=== PATIENT | male | born 1990 | race Caucasian/White ===

== ENCOUNTER 2023-11-21 17:09 | Emergency (ER) | payer OTHER, SELFPAY ==
--- NOTE | ~2023-11-21 | XR_ITS ---
EXAMINATION: XR HAND, RIGHT CLINICAL INFORMATION: Trauma. Pain. COMPARISON: None available. TECHNIQUE: Three views of the right hand. FINDINGS: The bones and soft tissues are normal. No fracture. Alignment is anatomic. Joint spaces are maintained. No erosions or soft tissue calcifications. XR/XR hand RT 2V IMPRESSION: Normal right hand.
--- NOTE | 2023-11-21 17:14 | ED.CHESTPAIN ---
HPI - Chest Pain General Chief Complaint: Chest Pain Stated Complaint: L SIDED CHEST PAIN FROM [facility] Time Seen by Provider: 11/21/23 17:12 Source: patient Mode of arrival: EMS Limitations: no limitations History of Present Illness HPI narrative: Patient is a 33-year-old male who presents to the emergency department on a section 21 from [facility] for evaluation. Reportedly he has been in an aggressive and combative state all throughout today. Struck a wall this afternoon with his right hand which she has redness and swelling over the dorsum of the hand along the ulnar aspect with associated pain. He reports that after hitting the wall he developed pain to his left chest, he states it is aching in nature in diffuse throughout. EMS obtained an EKG without abnormal findings reportedly normal sinus rhythm, they administered aspirin 324 mg orally and 0.4 as nitro and patient reports no change to his pain despite either medications. He denies fevers, chills, shortness of breath, difficulty breathing, nausea, vomiting, abdominal pain, numbness or tingling of his extremities. He does report recently having a nonproductive cough. He states he has experienced chest pain in the past, but the pain has always resolved before he could be evaluated at a hospital. He states that his current chest pain has been constant since its onset but also unchanged since the onset Related Data Allergies Allergy/AdvReac Type Severity Reaction Status Date / Time Unable to Assess Allergy Verified 11/21/23 17:26 Review of Systems Review of Systems: Yes all other systems are reviewed and are negative PMFSH Past Medical History Attestation statement: The following information was validated with the patient. Source: old records reviewed Social History Social History Advance Directives: No Advance Directives Information Provided: No Physical Exam Vital Signs: Vital Signs: Last Vital Signs Temp 98.3 F 11/21/23 19:51 Pulse 67 11/21/23 19:51 Resp 13 11/21/23 19:51 BP 126/76 11/21/23 19:51 Pulse Ox 99 11/21/23 19:51 O2 Del Method Room Air 11/21/23 19:51 BMI result Body Mass Index 30.8 Appearance: Alert.?Oriented to person, place and time. No acute distress.?Normal affect. Eyes: Pupils equal, round and reactive to light.? ENT: Pharynx normal.?? Neck: Normal inspection.? Neck supple.?? CVS: Heart sounds normal. Normal heart rate and rhythm.? Pulses normal.?? Respiratory: No respiratory distress.? Lung sounds clear to auscultation bilaterally?? Abdomen: Soft and non-tender. Normoactive bowel sounds. ?? Skin: Skin warm and dry.? Normal skin color.? ? Extremities: No lower extremity edema.? Erythema swelling and tenderness over the dorsum of the right hand over the 3rd-5th MCP with decreased AROM to digits Neuro: Moves all extremities spontaneously. Sensation intact bilaterally. CN II-XII intact. No focal neuro deficits. Ambulates with normal steady gait. Course Reevaluation(s) Reevaluation #1: Patient is refusing chest x-ray, lung sounds are clear bilaterally no tachypnea or hypoxia, although he has been experiencing a cough recently patient was advised can not completely exclude consolidation/infiltrate/pneumonia he continues to decline chest x-ray. CBC is without leukocytosis, he has a mild normocytic anemia that does not meet transfusion criteria, no thrombus a ptosis or thrombocytopenia. No electrolyte derangement. No CHIDI. LFTs within normal range. High sensitive troponin below detectable levels. Lipase within normal range. Viral panel is negative. EKG reveals normal sinus rhythm with ventricular rate of 66, QTC 429, no ST elevation, ST depression, no acute ischemic changes symptoms unlikely secondary to ACS, HEART score 0. Suspect musculoskeletal etiology versus stress reaction Time: 18:39 Reevaluation #2: XR of the right hand is without acute fracture/dislocation. Pain and swelling secondary to contusion of the hand. Time: 20:36 Medications Administered Discontinued Medications Generic Name Dose Route Start Last Admin Trade Name Ac PRN Reason Stop Dose Admin Acetaminophen 975 mg 11/21/23 18:41 11/21/23 19:09 Acetaminophen 325 Mg Tablet PO 11/21/23 18:42 Not Given ONCE ONE Acetaminophen 975 mg 11/21/23 20:12 11/21/23 20:17 Acetaminophen 325 Mg Tablet PO 11/21/23 20:13 975 mg ONCE ONE Administration Ibuprofen 600 mg 11/21/23 18:41 11/21/23 19:09 Ibuprofen 600 Mg Tablet PO 11/21/23 18:42 Not Given ONCE ONE Ibuprofen 600 mg 11/21/23 20:12 11/21/23 20:17 Ibuprofen 600 Mg Tablet PO 11/21/23 20:13 600 mg ONCE ONE Administration Medical Decision Making Medical Decision Making [facility] Narrative: Patient is a 33-year-old male presenting to emergency department for evaluation of chest pain and right hand pain as per HPI physical exam portion of this note. He does have notable swelling deformity and tenderness upon palpation to the dorsum of the left hand, XR will be obtained to evaluate for fracture/dislocation. On exam he otherwise appears nontoxic, afebrile, he has not diaphoretic, vital signs are stable. Will obtain CBC to evaluate for leukocytosis/ anemia, CMP and lipase to evaluate for abnormal electrolytes /abnormal renal function/ abnormal hepatic/biliary function, EKG and troponin to evaluate for ischemia/ACS. Chest x-ray to evaluate for consolidation/ infiltrate/ mass/ pulmonary congestion and viral panel. Upon review of records from [facility] he received alprazolam 1 mg at 15:06 and olanzapine 10 mg at 14:43. Differential Diagnosis Differential Diagnoses: The differential diagnosis associated with the presentation includes (Anxiety, stress reaction, ACS, upper respiratory infection, musculoskeletal pain) Admission/Observation Consideration of admission/observation: Escalation of care including admission/observation considered Lab Data [facility] Lab Attestation statement: I reviewed the patient's lab results. (See course narrative) 11/21/23 17:52 11/21/23 17:52 Labs: Lab Results 11/21/23 Range/Units 17:52 WBC 7.0 (4.8-10.8) X10*3/uL RBC 4.57 L (4.60-5.80) X10*6/uL Hgb 13.5 L (14.0-18.0) g/dl Hct 38.8 L (42.0-52.0) % MCV 84.9 (80.0-98.0) fL MCH 29.5 (27.0-33.0) pg MCHC 34.8 (31.0-36.0) g/dl RDW 14.2 (11.0-16.0) % Plt Count 246 (160-400) X10*3/uL MPV 10.5 (9.4-12.4) fL Immature Gran % (Auto) 0.9 H (0.0-0.4) % Neut % (Auto) 63.4 (45-73) % Lymph % (Auto) 29.0 (20-40) % [place] % (Auto) 6.3 (2-11) % Eos % (Auto) 0.1 (0-4) % Baso % (Auto) 0.3 (0-2) % Lymph # (Auto) 2.0 (1.2-4.9) X10*3/uL [place] # (Auto) 0.4 (0.1-1.2) X10*3/uL Eos # (Auto) 0.0 (0.0-0.4) X10*3/uL Baso # (Auto) 0.0 (0.0-0.2) X10*3/uL Abs Immat Gran (auto) 0.06 H (0.00-0.03) X10*3/uL Absolute Neuts (auto) 4.4 (2.0-8.3) x10*3/uL Absolute Nucleated RBC 0.000 (0.0-0.012) X10*3/uL Nucleated RBC % (auto) 0.0 (0.0-0.2) /100WBC PT 11.7 (11.1-13.3) SEC INR 1.0 (0.9-1.1) Sodium 140 (135-145) mmol/L Potassium 4.0 (3.3-5.1) mmol/L Chloride 107 (96-108) mmol/L Carbon Dioxide 23 (22-29) mmol/L Anion Gap 14 (12-20) BUN 9 (9-16) mg/dL Creatinine 0.82 (0.5-1.4) mg/dL Estim Creat Clear Calc 133.4 Estimated GFR > 60 Random Glucose 84 (60-115) mg/dL Calcium 9.2 (8.4-10.2) mg/dL Magnesium 2.0 (1.6-2.6) mg/dL Total Bilirubin 0.3 (0.0-1.0) mg/dL AST 17 (5-37) U/L ALT 19 (0-40) U/L Alkaline Phosphatase 72 (39-117) U/L Troponin I High Sens < 2.7 (<3.5-35.0) ng/L Total Protein 6.5 (6.5-8.0) g/dL Albumin 4.1 (3.5-5.0) g/dL Lipase 12 (8-78) U/L Influenza Type A (PCR) NEGATIVE (Negative) Influenza Type B (PCR) NEGATIVE (Negative) RSV RNA Qual (PCR) NEGATIVE (Negative) SARS-CoV-2 RNA (RT-PCR) NEGATIVE (Negative) Independent Interpretation I performed an independent interpretation of an: EKG (See course narrative) and Plain X-Ray (Right hand without acute fracture) Radiology Impression Discussion of test interpretation with radiology: I have reviewed the radiologist's reading. Radiologist Impression: XR/XR hand RT 2V IMPRESSION: Normal right hand. Independent Historian Clinical information obtained from an independent historian. History obtained from or confirmed by: EMS External Record Review External record reviewed: Outpatient record Discharge Plan Discharge Clinical Impression: Chest pain, Contusion of hand Patient Disposition: [facility]fer [facility] Transfer Details: Jonas Additional Instructions: Blood work and EKG today were very reassuring, no evidence of a heart attack. Viral tests were negative. He declined to have x-ray of the chest to rule out pneumonia, though I suspect this is less likely to be the cause. Chest pain is likely secondary to muscle strain versus stress reaction. The x-ray of your right hand does not show any evidence of a fracture dislocation. Pain is due to traumatic injury. Please be sure to rest the hand, apply ice for 10-15 minutes 3-4 times daily over the next few days, elevate the hand when possible. You can take ibuprofen 200 mg, 3 tablets (600mg) every 6-8 hours as needed for pain, in addition to Tylenol 500 mg, 2 tablets (1,000mg) every 4-6 hours as needed for pain, but not to exceed 3 doses daily (3,000mg).? Referrals: Physician,Unknown J [Primary Care Provider] - Print Language: Spanish
[2023-11-21 17:20] VITALS: BP 128/81; BP 136/90; PULSE 71; PULSE 82; RESP 18; TEMP 36.8; O2SAT 98; O2SAT 99; BMI 30.8
--- NOTE | 2023-11-21 17:22 | ECG_ITS ---
Test Reason : CHEST PAIN Blood Pressure : / mmHG Vent. Rate : 066 BPM Atrial Rate : 066 BPM P-R Int : 120 ms QRS Dur : 084 ms QT Int : 410 ms P-R-T Axes : 009 001 023 degrees QTc Int : 429 ms Normal sinus rhythm Normal ECG No previous ECGs available Referred By: Mary Willis Electronically Signed By:TALA GILMORE
[2023-11-21 17:58] LABS: MANUAL DIFF FLAG NO
[2023-11-21 18:10] LABS: Prothrombin Time 11.7 SEC (11.1-13.3)
[2023-11-21 18:12] LABS: Alanine Aminotransferase 19 U/L (0-40); Albumin Level 4.1 g/dL (3.5-5.0); Alkaline Phosphatase 72 U/L (39-117); Anion Gap 14 (12-20); Aspartate Amino Transferase 17 U/L (5-37); Bilirubin Total 0.3 mg/dL (0.0-1.0); Blood Urea Nitrogen 9 mg/dL (9-16); Calcium 9.2 mg/dL (8.4-10.2); Carbon Dioxide 23 mmol/L (22-29); Chloride 107 mmol/L (96-108); Creatinine Clr Calc Pharmacy 133.4; Estimated Glomerular Filt Rate > 60; Glucose Random 84 mg/dL (60-115); Lipase 12 U/L (8-78); Sodium 140 mmol/L (135-145); Total Protein 6.5 g/dL (6.5-8.0)
[2023-11-21 18:15] LABS: Basophils Percent Auto 0.3 % (0-2); Eosinophils Percent Auto 0.1 % (0-4); Hematocrit 38.8 % (42.0-52.0); Hemoglobin 13.5 g/dl (14.0-18.0); Imm Gran Abs Auto 0.06 X10*3/uL (0.00-0.03); Imm Gran Pct Auto 0.9 % (0.0-0.4); Mean Corpuscular HGB Conc 34.8 g/dl (31.0-36.0); Mean Corpuscular Hemoglobin 29.5 pg (27.0-33.0); Mean Corpuscular Volume 84.9 fL (80.0-98.0); Mean Platelet Volume 10.5 fL (9.4-12.4); Monocytes Absolute Auto 0.4 X10*3/uL (0.1-1.2); Monocytes Percent Auto 6.3 % (2-11); Neutrophils Absolute Auto 4.4 x10*3/uL (2.0-8.3); Neutrophils Percent Auto 63.4 % (45-73); Platelet Count 246 X10*3/uL (160-400); Red Blood Count 4.57 X10*6/uL (4.60-5.80); Red Cell Distribution Width 14.2 % (11.0-16.0)
[2023-11-21 18:20] LABS: Troponin-I High Sensitivity < 2.7 ng/L (<3.5-35.0)
[2023-11-21 18:35] LABS: Influenza A PCR NEGATIVE (Negative); Influenza B PCR NEGATIVE (Negative); Resp Syncy Virus RNA Qual PCR NEGATIVE (Negative); SARS COV2 PCR INHOUSE NEGATIVE (Negative)
[2023-11-21 18:53] VITALS: BP 123/77; PULSE 70; RESP 15; TEMP 36.3; O2SAT 98
--- NOTE | 2023-11-21 19:09 | PC.NURSE ---
patient refusing tylenol and ibuprofen, states it hurts his stomach.
--- NOTE | 2023-11-21 19:48 | PC.NURSE ---
call Shana Man @ [phone] when pt ready for discharge.
[2023-11-21 19:51] VITALS: BP 126/76; PULSE 67; RESP 13; TEMP 36.8; O2SAT 99
[2023-11-21] MEDS: Ibuprofen 600 MG TABLET PO (20:17)
[2023-11-21] MEDS: Acetaminophen 325 MG TABLET 975 MG PO (20:17)
--- NOTE | 2023-11-21 21:24 | PC.NURSE ---
Jonas notified of normal xray and that pt is ready for d/c.
--- NOTE | 2023-11-21 22:31 | PC.NURSE ---
pt is waiting for ambulance back, pain to right hand/. pt moving and making a fist with both his hands. redness to hands amanda noted. no s/s of distress. pt iv removed.
[2023-11-21 22:51] VITALS: BP 118/73; PULSE 71; O2SAT 99
[2023-11-21 22:59] VITALS: BP 118/73; PULSE 71; RESP 16; TEMP 36.8; O2SAT 99
== END 2023-11-21 23:36 ==
PROVIDERS: Nurse Practitioner Family; Emergency Provider Emergency Medicine
DX: R07.9 Chest pain, unspecified (principal); S60.221A Contusion of right hand, initial encounter; W22.09XA Striking against other stationary object, initial encounter; Y93.9 Activity, unspecified; Y92.9 Unspecified place or not applicable; Y99.9 Unspecified external cause status
CPT/HCPCS: 0241U; 36415; 73120; 80053; 83690; 83735; 84484; 85025; 85610; 93005; 99283; 99285

== ENCOUNTER → 2023-11-21 17:22 | Outpatient (BNV) | payer OTHER, SELFPAY | PROVIDERS: Emergency Provider Emergency Medicine; Visit Provider Internal Medicine | DX: R07.9 Chest pain, unspecified (principal) | CPT/HCPCS: 93010 ==

== ENCOUNTER 2025-05-16 09:11 | Emergency (ER) | payer OTHER, SELFPAY ==
[2025-05-16 09:23] VITALS: BP 117/68; PULSE 86; RESP 16; TEMP 36.8; O2SAT 95; BMI 37.2
--- OUTSIDE RECORDS SUMMARY | 2025-05-16 10:31 | XMS_ITS | Encounter Summary ---
Author Organization [facility] [address] [place] [address] Care Team Providers Care Knockout Machine Operator Name Role Phone Pcp, No Unavailable Unavailable Doug Escoto MD, Surinder Doe Primary Care Provider [phone] Kristian Schroeder MD Primary Care Provider [phone] Encounter Details Date Type Department Care Team (Late st Contact Info) Description 08/14/2024 Lab Requisition [facility] [address] [place] [id number] Kirill Sun MD [address] [place] [phone] Bipolar disorder, current episode mixed, severe, with psychotic features (HCC); Opioid dependence with unspecified opioid-induced disorder (HCC); Post-traumatic stress disorder, chronic Social History Tobacco Use Types Packs/Day Years Used Date Smoking Tobacco: Never Smokeless Tobacco: Never Alcohol Use Standard Drinks/Week Comments Never 0 (1 standard drink = 0.6 oz pur e alcohol) Sex and Gender Information Value Date Recorded Sex Assigned at Male 05/19/2024 11:33 AM EST Legal Sex Male 8:53 PM EDT Gender Identity Male 05/19/2024 11:33 AM EST Sexual Orientation Straight 05/19/2024 11 :33 AM EST documented as of this encounter Plan of Treatment Not on file documented as of this encounter Procedures Procedure Name Priority Date/Time Associated Diagnosis Comments LIPID PROFILE, REFLEX DIRECT LDL Routine 08/14/2024 6:35 AM EST CBC AND AUTO DIFFERENTIAL Routine 08/14/2024 6:35 AM EST TSH WITH REFLEX TO FREE T4 Routine 08/14/2024 6:35 AM EST LDL CHOLESTEROL DIRECT Routine 6:35 AM EST HEMOGLOBIN A1C Routine 08/14/2024 6:35 AM EST COMPREHENSIVE METABOLIC PANEL Routine 08/14/2024 6:35 AM EST Bipolar disorder, current episode mixed, severe, with psychotic features (HCC) Opioid dependence with unspecified opioid-induced disorder (HCC) Post-traumatic stress disorder, chronic documented in this encounter Results * (ABNORMAL) LDL Cholesterol Direct (08/14/2024 6:35 AM EST) LDL Direct 100(H) <100 mg/dL 08/14/2024 12:25 PM EST [facility] Blood Venipuncture / Unknown 08/14/2024 6:35 AM EST 08/14/2024 9:22 AM EST Narrative [facility] - 08/14/2024 12:25 PM EST ADULT LEVELS: Optimal for High Risk Group < 70 mg/dL Optimal < 100 mg/dL Near Optimal 100 - 129 mg/dL Borderline High 130 - 159 mg/dL High 160 - 189 mg/dL Very High > 190 ng/dL us Kirill Sun MD LAB BLOOD ORDERABLES Final Result [facility] [address] [place] [address] * (ABNORMAL) CBC and Auto Differential (08/14/2024 6:35 AM EST) WBC 5.5 4.8 - 11.2 10*3/ L 08/14/2024 9:57 AM EST [facility] RBC 4.76 4.00 - 5.90 10*6/ L 08/14/2024 9:57 AM EST [facility] HGB 13.6(L) 14.0 - 17.2 g/dL 08/14/2024 9:57 AM [facility] HCT 40.9 40.0 - 52.0 % 08/14/2024 9:57 AM [facility] MCV 86.0 82.0 - 98.0 fL 08/14/2024 9:57 AM [facility] MCH 28.6 27.0 - 35.0 pg 08/14/2024 9:57 AM [facility] MCHC 33.3 32.0 - 37.0 g/dL 08/14/2024 9:57 AM [facility] RDW 15.3(H) 12.0 - 15.0 % 08/14/2024 9:57 AM [facility] PLT 244 150 - 400 10*3/ L 08/14/2024 9:57 AM [facility] MPV 9.1 7.0 - 14.0 fL 08/14/2024 9:57 AM [facility] Neut % 56.3 45.0 - 85.0 % 08/14/2024 9:57 AM [facility] Lymph % 34.9 15.0 - 45.0 % 08/14/2024 9:57 AM [facility] [place] % 6.7 0.0 - 12.0 % 08/14/2024 9:57 AM [facility] Eos % 1.7 0.0 - 7.0 % 08/14/2024 9:57 AM [facility] Baso % 0.4 0.0 - 3.0 % 08/14/2024 9:57 AM [facility] NRBC% 0 0 /100 WBC /100 WBC 08/14/2024 9:57 AM [facility] Neut # 3.1 2.2 - 9.5 10*3/ L 08/14/2024 9:57 AM [facility] Lym # 1.9 0.7 - 5.0 10*3/ L 08/14/2024 9:57 AM [facility] [place] # 0.4 0.0 - 1.3 10*3/ L 08/14/2024 9:57 AM EST [facility] Eos # 0.1 0.0 - 0.4 10*3/ L 08/14/2024 9:57 AM EST [facility] Baso # 0.0 0.0 - 0.3 10*3/ L 08/14/2024 9:57 AM EST [facility] Blood Venipuncture / Unknown 08/14/2024 6:35 AM EST 08/14/2024 9:22 AM EST us Kirill Sun MD LAB BLOOD ORDERABLES Final Result Performing Organization Address [facility] Phone Number [facility] [address] [place] [phone] * TSH with reflex to Free T4 (08/14/2024 6:35 AM EST) TSH 2.424 0.340 - 4.820 uIU/mL 08/14/2024 11:14 AM EST [facility] Blood Venipuncture / Unknown 08/14/2024 6:35 AM EST 08/14/2024 9:22 AM EST us Kirill Sun MD LAB BLOOD ORDERABLES Final Result Performing Organization Address [facility] Phone Number [facility] [address] [place] [phone] * Hemoglobin A1c (08/14/2024 6:35 AM EST) Hemoglobin A1C 5.4 4.0 - 6.0 % 08/14/2024 12:09 PM EST [facility] Estimated Average Glucose eAG 108.3 85.0 - 126.0 mg/dL 08/14/2024 12:09 PM EST [facility] Blood 08/14/2024 6:35 AM EST 08/14/2024 9:22 AM EST us Kirill Sun MD LAB BLOOD ORDERABLES Final Result Performing Organization Address City/[facility] Phone Number [facility] [address] [place] [address] * (ABNORMAL) Lipid profile, reflex direct LDL (08/14/2024 6:35 AM EST) Cholesterol 197 <200 mg/dL 08/14/2024 11:15 AM EST [facility] Triglycerides 528(H) <150 mg/dL 08/14/2024 11:15 AM EST [facility] HDL 33.4(L) >=60.0 mg/dL 08/14/2024 11:15 AM EST [facility] LDL Calculated 08/14/2024 11:15 AM EST [facility] Comment:Calculated LDL inval id, triglycerides >400 mg/dl Cardiac Risk Factor 5.9(H) 0.0 - 5.0 08/14/2024 11:15 AM EST [facility] Blood Venipuncture / Unknown 08/14/2024 6:35 AM EST 08/14/2024 9:22 AM EST Narrative [facility] - 08/14/2024 11:15 AM EST Cardiac Risk Factor: Males Females 2x Average Risk 9.6 7.1 3x Average Risk 23.4 11.0 Kirill Sun MD LAB BLOOD ORDERABLES Final Result [facility] [address] [place] [phone] * Comprehensive metabolic panel (08/14/2024 6:35 AM EST) Sodium 138 136 - 145 mEq/L 08/14/2024 11:14 AM EST [facility] Potassium 4.6 3.5 - 5.1 mEq/L 08/14/2024 11:14 AM EST [facility] Chloride 107 98 - 109 mEq/L 08/14/2024 11:14 AM EST [facility] CO2 23 20 - 31 mEq/L 08/14/2024 11:14 AM EST [facility] Anion Gap 8 4 - 15 mEq/L 08/14/2024 11:14 AM EST [facility] Glucose 89 70 - 100 mg/dL 08/14/2024 11:14 AM [facility] Creatinine 0.74 0.60 - 1.10 mg/dL 08/14/2024 11:14 AM [facility] eGFR (Male) >60 60 - 115 mL/min 08/14/2024 11:14 AM [facility] BUN 13 9 - 23 mg/dL 08/14/2024 11:14 AM [facility] Calcium 9.5 8.3 - 10.6 mg/dL 08/14/2024 11:14 AM [facility] Total Protein 6.9 5.7 - 8.2 g/dL 08/14/2024 11:14 AM [facility] Albumin 4.3 3.2 - 4.8 g/dL 08/14/2024 11:14 AM [facility] A/G Ratio 1.7 1.0 - 2.3 08/14/2024 11:14 AM [facility] Total Bilirubin 0.2 0.2 - 1.0 mg/dL 08/14/2024 11:14 AM [facility] AST 14 13 - 40 U/L 08/14/2024 11:14 AM [facility] Alkaline Phosphatase 112 46 - 116 IU/L 08/14/2024 11:14 AM [facility] ALT 26 7 - 40 U/L 08/14/2024 11:14 AM [facility] Blood Venipuncture / Unknown 08/14/2024 6:35 AM EST 08/14/2024 9:22 AM EST Narrative [facility] - 08/14/2024 11:14 AM EST The calcium reference range has been changed as of 05/19/2024. Kirill Sun MD LAB BLOOD ORDERABLES Final Result [facility] [address] [place] [address] documented in this encounter Visit Diagnoses Diagnosis Bipolar disorder, current episode mixed, severe, with psychotic features (HCC) Opioid dependence with unspecified opioid-induced disorder (HCC) Post-traumatic stress disorder, chronic documented in this encounter Care Teams Knockout Machine Operator Relationship Specialty Start Date End Date Surinder Camacho Jr., MD [address] [place] [phone] PCP - General Internal Medicine 10/05/23 03/17/25 Kristian Schroeder MD [address] [place] [phone] PCP - General Family Medicine 03/18/25 [place] [id number] 08/22/20 documented as of this encounter
--- OUTSIDE RECORDS SUMMARY | 2025-05-16 10:31 | XMS_ITS | Data Portability ---
Author Organization [facility], [facility] Address [address] [place] [address] Assessment Encounter Date Assessment Date Assessment LastModified by Organization Details LastModified Time 01/16/2020 01/16/2020 B/P 145/85, otherwise examination unremarkable today. Discussed htn preventive lifestyle changes and encouraged to f/u with is pcp. See the attached documents. [email or web address] Not available 01/16/2020 11:18:04 Plan of Treatment Reminders Order Date Submit Date Provider Last Modified By Organization Details Last Modified Time Details Appointments None record ed. Lab None record ed. Referral None record ed. Procedures None record ed. Surgeries None record ed. Imaging None record ed. Medication Orders None record ed. Patient TargetsNo targets recorded. Patient InstructionsNo instructions recorded. Reason for Referral None Reported. Problems No Known Problems Medical Equipment None Reported. Allergies No known drug allergies Medications Name Sig Start Date Stop Date Status Note LastModified by Organization Details LastModified Time hydroxyzine HCl 25 mg tablet Take 1 tablet 4 times a day by oral route. active Not Available Not Available No t Available Suboxone 8 mg-[address] 1 film every day by sublingual route. active Not Available Not Available No t Available Vitals Date Recorded Body height Body mass index (BMI) Body weight Heart rate Oxygen saturation Respiratory rate Body temperature Systolic And Diastolic Provider Name and Address Organization Details Last Updated DateTime 0 172.72 cm 25.8 kg/m2 33229.7 g 56 /min 100 % 16 /min 98.1 [degF] 145/83 mm[Hg] Makayla Salinas [facility] 0 11:05:59 Social History Question Answer Notes LastModified by Organizat ion Details LastModified Time Tobacco Smoking Status Current Every Day Smoker Makayla malin [facility] 01/16/2020 10:59:02 What Is Your Level Of Caffeine Consumption? None Information not available 01/16/2020 What Type Of Diet Are You Following? REGULAR Information not available 01/16/2020 Which Illicit Or Recreational Drugs Have You Used? None Information not available 01/16/2020 Live Alone Or With Others? With Others Information not available 01/16/2020 Sunscreen Used Routinely Yes Information not available 01/16/2020 Marital Status Single Informatio n not available 01/16/2020 How Many Children Do You Have? 0 Information not available 01/16/2020 Seat Belts Used Routinely Yes Information not available 01/16/2020 Smoke Alarm In Home Yes Information not available 01/16/2020 How Much Tobacco Do You Smoke? 1 PPD Information not available 01/16/2020 Sex: Unknown Functional Status Question Answer Note LastModified by Organization D etails LastModified Time What is your level of alcohol consumption? None Information not available 01/16/2020 What is your exercise level? Moderate Information not available 01/16/2020 Mental Status None recorded. Family History Relationship Description Onset Age of this Age Resolved Age Notes LastModified by Organization Details LastModified Time Father No current problems or disability [email or web address] Not available 01/15 11:07:40 Mother No current problems or disability [email or web address] Not available 01/15 11:07:40 Medical History No medical history recorded. Past Encounters Encounter ID Performer Location Encounter Start Date Encounter Closed Date Diagnosis/Indication Diagnosis SNOMED-CT Code Diagnosis ICD10 Code Diagnosis IMO Codes Diagnosis Note [id number] Gladys Dickey/Leonardo ockton Office [facility] [place] [address] 01/16/2020 10:25:04 01/16/2020 11:56:23 Health Concerns Section Related Observation LastModified by Organization Detai ls LastModified Time None Recorded Concern Status LastModified by Organization Details LastModified Time None Recorded Advance Directives Directive None Recorded Payers Insurance Date Sequence Insurance Name Policy Number Policy He Covered Member ID He Member ID Guarantor Name 01/16/2020 [facility] Evan Boyce 0 [id number] Evan Austen Notes Date Note Type Note Provider Name and Address Organization Details Recorded Time 01/16/2020 text/html Patient is here today for preemployment for the [employer]. Denies any pain/discomfort/con cerns today. Gladys Salgado [address] [place] [address], [place], [address], [facility] 01/16/2020 11:18:09
--- OUTSIDE RECORDS SUMMARY | 2025-05-16 10:31 | XMS_ITS | Clinical Summary ---
Author Organization [facility] Address [address] [place] [address] Phone Care Team Providers Care Alligator Hunter Name Role Phone Surinder Camacho Jr. Primary Care Provider [phone] Allergies No known active allergies Social History Tobacco Use Types Packs/Day Years Used Date Smoking Tobacco: Never Assessed Sex and Gender Information Value Date Recorded Sex Assigned at Not on file Legal Sex Male 12:29 PM EDT Gender Identity Not on file Sexual Orientation Not on file Last Filed Vital Signs Vital Sign Reading Time Taken Comments Blood Pressure 133/83 09/18/2024 6:10 PM EDT Pulse 72 09/18/2024 6:10 PM EDT Temperature 36.5 C (97.7 F) 09/18/2024 6:10 PM EDT Respiratory Rate 20 09/18/2024 6:10 PM EDT Oxygen Saturation 97% 09/18/2024 6:10 PM EDT Inhaled Oxygen Concentration - - Weight 108.9 kg (240 lb) 09/18/2024 12:47 PM EDT Height 172.7 cm (5' 8 ) 09/18/2024 12:47 PM EDT Body Mass Index 36.49 09/18/2024 12:47 PM EDT Plan of Treatment Health Maintenance Due Date Last Done Comments [facility] Topic HIV Screening 1991 [facility] Topic Hepatitis C Screening 1991 [facility] Topic Tdap Vaccine (1 - Tdap) 2010 [facility] Topic HPV Vaccines (1 - 3-dose SCDM series) 2018 [facility] Topic Influenza (Flu) Seasonal (#1) 2025 [facility] Topic Lipid Profile 5 years 08/14/2029 08/14/2024, 08/14/2024, 07/17/2024 [facility] Topic Shingrix (1 of 2) 2041 [facility] AMB RSV (under 20 months) Aged Out No longer eligible b ased on patient's age to complete this topic [facility] Topic HIB Vaccines Aged Out No longer eligible based on patient's age to complete this topic Insurance [facility] Care Teams Alligator Hunter Relationship Specialty Start Date End Date Surinder Camacho Jr. [address] [place] [id number] PCP - General Internal Medicine 09/18/24
--- OUTSIDE RECORDS SUMMARY | 2025-05-16 10:31 | XMS_ITS | Encounter Summary ---
Author Organization [facility] Address [address] [place] [address] Care Team Providers Care Shoe Stamper Name Role Phone Pcp, No Unavailable Unavailable Doug Escoto MD, Surinder Doe Primary Care Provider [phone] Kristian Schroeder MD Primary Care Provider [phone] Encounter Details Date Type Department Care Team ([facility] Contact Info) Description 05/19/2024 Procedure Pass [facility] - [address] [address] Social History Tobacco Use Types Packs/Day Years [...] on file documented as of this encounter Visit Diagnoses Not on filedocumented in this encounter Care Teams Shoe Stamper Relationship Specialty Start Date End Date Surinder Camacho Jr., MD [address] [place] [address] PCP - General Internal Medicine 10/05/23 03/17/25 Kristian Schroeder MD [address] [place] [address] PCP - General Family Medicine 03/18/25 [place] [id number] 08/22/20 documented as of this encounter
--- OUTSIDE RECORDS SUMMARY | 2025-05-16 10:31 | XMS_ITS | Encounter Summary ---
Author Organization [facility] [address] [place] [address] Care Team Providers Care Quality Assurance Analyst Name Role Phone Pcp, No Unavailable Unavailable Doug Escoto MD, Surinder Doe Primary Care Provider [phone] Kristian Schroeder MD Primary Care Provider [phone] Encounter Details Date Type Department Care Team (Late st Contact Info) Description 09/28/2024 Lab Requisition [address] [id number] Ortiz Corado NP [address] [place] [phone] Bipolar disorder, current episode depressed, severe, without psychotic features (HCC) Social History Tobacco Use Types Packs/Day Years [...] Comments LIPID PROFILE, REFLEX DIRECT LDL Routine 09/28/2024 8:05 AM EDT Bipolar disorder, current episode depressed, severe, without psychotic features (HCC) TSH WITH REFLEX TO FREE T4 Routine 09/28/2024 8:05 AM EDT HEMOGLOBIN A1C Routine 09/28/2024 8:05 AM EDT documented in this encounter Results * TSH with reflex to Free T4 (09/28/2024 8:05 AM EDT) TSH 2.325 0.550 - 4.780 uIU/mL 09/28/2024 11:00 AM EDT [facility] Blood Venipuncture / Unknown 09/28/2024 8:05 AM EDT 09/28/2024 8:59 AM EDT [facility] - 09/28/2024 11:00 AM EDT NOTE: Effective 08/25/24, the reference range has changed as follows: Old reference ranges: 0 up to 2 Years: 0.870-6.150 uIU/mL 2 Years up to 12 Years: 0.670-4.160 uIU/mL 12 Years up to 18 Years: 0.480-4.170 uIU/mL 18 Years +: 0.340-4.820 uIU/mL New Reference ranges: 0 up to 2 Years: 0.870-6.150 uIU/mL 2 Years up to 13 Years: 0.670-4.160 uIU/mL 13 Years up to 21 Years: 0.480-4.170 uIU/mL 21 Years +: 0.550-4.780 uIU/mL [facility] LAB BLOOD ORDERABLES Final R esult [facility] [address] [place] [address] * Hemoglobin A1c (09/28/2024 8:05 AM EDT) Hemoglobin A1C 6.0 4.0 - 6.0 % 09/28/2024 10:39 AM EDT [facility] Estimated Average Glucose eAG 125.5 85.0 - 126.0 mg/dL 09/28/2024 10:39 AM EDT [facility] Blood 09/28/2024 8:05 AM EDT 09/28/2024 8:59 AM EDT Ortiz Ahoskie PRINTER MAINTAINER LAB BLOOD ORDERABLES Final R esult Performing Organization Address [facility] Co de Phone Number [facility] [address] [place] [address] * (ABNORMAL) Lipid profile, reflex direct LDL (09/28/2024 8:05 AM EDT) Cholesterol 133 <200 mg/dL 09/28/2024 11:00 AM EDT [facility] Triglycerides 210(H) <150 mg/dL 09/28/2024 11:00 AM EDT [facility] HDL 37.1(L) >=60.0 mg/dL 09/28/2024 11:00 AM EDT [facility] LDL Calculated 54 0 - 100 mg/dL 09/28/2024 11:00 AM EDT [facility] Cardiac Risk Factor 3.6 0.0 - 5.0 09/28/2024 11:00 AM EDT [facility] Blood Venipuncture / Unknown 09/28/2024 8:05 AM EDT 09/28/2024 8:59 AM EDT Narrative [facility] - 09/28/2024 11:00 AM EDT Cardiac Risk Factor: Males Females 2x Average Risk 9.6 7.1 3x Average Risk 23.4 11.0 [facility] PRINTER MAINTAINER LAB BLOOD ORDERABLES Final R esult Performing Organization Address [facility] Co de Phone Number [facility] [address] [place] [address] documented in this encounter Visit Diagnoses Diagnosis Bipolar disorder, current episode depressed, severe, without psychotic features (HCC) documented in this encounter Care Teams Quality Assurance Analyst Relationship Specialty Start Date End Date Surinder Camacho Jr., MD [address] [place] [phone] PCP - General Internal Medicine 10/05/23 03/17/25 Kristian Schroeder MD [address] [place] [phone] PCP - General Family Medicine 03/18/25 [place] [id number] 08/22/20 documented as of this encounter
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
--- OUTSIDE RECORDS SUMMARY | 2025-05-16 10:31 | XMS_ITS | Encounter Summary ---
Author Organization [facility] Address [address] [place] [address] Care Team Providers Care Cloth Drier Name Role Phone Pcp, No Unavailable Unavailable Doug Escoto MD, Surinder Doe Primary Care Provider [phone] Kristian Schroeder MD Primary Care Provider [phone] Encounter Details Date Type Department Care Team (Late st Contact Info) Description 07/30/2024 Pharmacy Visit [facility] [address] [place] [phone] Social History Tobacco Use Types Packs/Day Years [...] on filedocumented in this encounter Care Teams Cloth Drier Relationship Specialty Start Date End Date Surinder Camacho Jr., MD [address] [place] [address] PCP - General Internal Medicine 10/05/23 03/17/25 Kristian Schroeder MD [address] [place] [address] PCP - General Family Medicine 03/18/25 [place] [id number] 08/22/20 documented as of this encounter
--- OUTSIDE RECORDS SUMMARY | 2025-05-16 10:31 | XMS_ITS | Encounter Summary ---
Author Organization [facility] [address] [place] [address] Care Team Providers Care Junior Linux Systems Administrator Name Role Phone Pcp, No Unavailable Unavailable Doug Escoto MD, Surinder Doe Primary Care Provider [phone] Kristian Schroeder MD Primary Care Provider [phone] Encounter Details Date Type Department Care Team (Late st Contact Info) Description 10/10/2024 Lab Requisition [address] [phone] Carol Neumann, HOT STAMP OPERATOR [address] [place] [address] Bipolar disorder, current episode depressed, severe, without [...] Procedure Name Priority Date/Time Associated Diagnosis Comments URINE COMPLETE Routine 10/09/2024 2:00 PM EDT Bipolar disorder, current episode depressed, severe, without psychotic features (HCC) documented in this encounter Results * (ABNORMAL) Urine Complete (10/09/2024 2:00 PM EDT) Clarity, UA Clear Clear 10/10/2024 12:11 PM EDT [facility] Color Light-Yello w Colorless, Yellow, Light-Yello w, Dark-Yellow 10/10/2024 12:11 PM EDT [facility] Specific [place] 1.018 1.000 - 1.025 10/10/2024 12:11 PM EDT [facility] pH 6.0 5.0 - 8.0 10/10/2024 12:11 PM EDT [facility] Protein Negative Negative, 10 , 20 mg/dL 10/10/2024 12:11 PM EDT [facility] Glucose Normal Normal, 30 , 50 mg/dL 10/10/2024 12:11 PM EDT [facility] Ketones Negative Negative, Trace mg/dL 10/10/2024 12:11 PM EDT [facility] Blood Negative Negative, 0.03 mg/dL 10/10/2024 12:11 PM EDT [facility] Bilirubin UA Negative Negative mg/dL 10/10/2024 12:11 PM EDT [facility] Urobilinogen Normal Normal mg/dL 10/10/2024 12:11 PM EDT [facility] Nitrite Negative Negative 10/10/2024 12:11 PM EDT [facility] Leukocyte Esterase Negative Negative, 25 Yariel/uL 10/10/2024 12:11 PM EDT [facility] WBC 0-2 0 - 2 HPF 10/10/2024 12:11 PM EDT [facility] Squam Epithelial Few Few HPF 10/11/19 25 12:11 PM EDT [facility] Bacteria Few(A) None Seen HPF 10/10/2024 12:11 PM EDT [facility] Urine Urine specimen obtained by clean catch procedure / Unknown Collection / Unknown 10/09/2024 2:00 PM EDT 10/10/2024 11:31 AM EDT us Nji S Thien HOT STAMP OPERATOR URINE ORDERABLES Final Result [facility] [address] [place] [address] documented in this encounter Visit Diagnoses Diagnosis Bipolar disorder, current episode depressed, severe, without psychotic features (HCC) documented in this encounter Care Teams Junior Linux Systems Administrator Relationship Specialty Start Date End Date Surinder Camacho Jr., MD [address] [place] [address] PCP - General Internal Medicine 10/05/23 03/17/25 Kristian Schroeder MD [address] [place] [address] PCP - General Family Medicine 03/18/25 [place] [id number] 08/22/20 documented as of this encounter
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
--- OUTSIDE RECORDS SUMMARY | 2025-05-16 10:31 | XMS_ITS | Encounter Summary ---
Author Organization [address] [address] Care Team Providers Care Surveyor Rod Helper Name Role Phone Pcp, No Unavailable Unavailable Doug Escoto MD, Surinder Doe Primary Care Provider [phone] Kristian Schroeder MD Primary Care Provider [phone] Encounter Details Date Type Department Care Team (Latest Contact Info) Description 07/17/2024 Lab Requisition [address] [address] Latisha Fallon, [employer] [address] [place] [address] Bipolar disorder, current episode mixed, severe, without psychotic features (HCC); Other psychoactive substance abuse, uncomplicated (HCC) Social History Tobacco Use Types Packs/Day [...] Comments LIPID PROFILE, REFLEX DIRECT LDL Routine 07/17/2024 7:19 AM EST CBC AND AUTO DIFFERENTIAL Routine 07/17/2024 7:19 AM EST TSH WITH REFLEX TO FREE T4 Routine 07/17/2024 7:19 AM EST HEMOGLOBIN A1C Routine 07/17/2024 7:19 AM EST COMPREHENSIVE METABOLIC PANEL Routine 07/17/2024 7:19 AM EST Bipolar disorder, current episode mixed, severe, without psychotic features (HCC) Other psychoactive substance abuse, uncomplicated (HCC) documented in this encounter Results * (ABNORMAL) CBC and Auto Differential (07/17/2024 7:19 AM EST) WBC 4.8 4.8 - 11.2 10*3/ L 07/17/2024 12:33 PM [facility] RBC 4.72 4.00 - 5.90 10*6/ L 07/17/2024 12:33 PM [facility] HGB 13.4(L) 14.0 - 17.2 g/dL 07/17/2024 12:33 PM [facility] HCT 40.4 40.0 - 52.0 % 07/17/2024 12:33 PM [facility] MCV 85.5 82.0 - 98.0 fL 07/17/2024 12:33 PM [facility] MCH 28.3 27.0 - 35.0 pg 07/17/2024 12:33 PM [facility] MCHC 33.1 32.0 - 37.0 g/dL 07/17/2024 12:33 PM [facility] RDW 15.1(H) 12.0 - 15.0 % 07/17/2024 12:33 PM [facility] PLT 216 150 - 400 10*3/ L 07/17/2024 12:33 PM [facility] MPV 9.0 7.0 - 14.0 fL 07/17/2024 12:33 PM [facility] Neut % 53.9 45.0 - 85.0 % 07/17/2024 12:33 PM [facility] Lymph % 34.8 15.0 - 45.0 % 07/17/2024 12:33 PM EST [facility] [place] % 8.2 0.0 - 12.0 % 07/17/2024 12:33 PM [facility] Eos % 2.5 0.0 - 7.0 % 07/17/2024 12:33 PM EST [facility] Baso % 0.6 0.0 - 3.0 % 07/17/2024 12:33 PM [facility] NRBC% 0 0 /100 WBC /100 WBC 07/17/2024 12:33 PM [facility] Neut # 2.6 2.2 - 9.5 10*3/ L 07/17/2024 12:33 PM [facility] Lym # 1.7 0.7 - 5.0 10*3/ L 07/17/2024 12:33 PM [facility] [place] # 0.4 0.0 - 1.3 10*3/ L 07/17/2024 12:33 PM [facility] Eos # 0.1 0.0 - 0.4 10*3/ L 07/17/2024 12:33 PM [facility] Baso # 0.0 0.0 - 0.3 10*3/ L 07/17/2024 12:33 PM [facility] Blood Venipuncture / Unknown 07/17/2024 7:19 AM EST 07/17/2024 11:17 AM EST us Latisha Fallon NP LAB BLOOD ORDERABLES Final Resul t [facility] [address] [place] [address] * TSH with reflex to Free T4 (07/17/2024 7:19 AM EST) TSH 2.168 0.340 - 4.820 uIU/mL 07/17/2024 11:53 AM EST [facility] Blood Venipuncture / Unknown 07/17/2024 7:19 AM EST 07/17/2024 11:17 AM EST us Latisha Fallon NP LAB BLOOD ORDERABLES Final Resul t Performing Organization Address City/[facility] Co de Phone Number [facility] [address] [place] [phone] * Hemoglobin A1c (07/17/2024 7:19 AM EST) Hemoglobin A1C 5.5 4.0 - 6.0 % 07/17/2024 11:43 AM EST [facility] Estimated Average Glucose eAG 111.2 85.0 - 126.0 mg/dL 07/17/2024 11:43 AM EST [facility] Blood 07/17/2024 7:19 AM EST 07/17/2024 11:17 AM EST us Latihsa Fallon NP LAB BLOOD ORDERABLES Final Resul t Performing Organization Address [facility] de Phone Number [facility] [address] [place] [phone] * (ABNORMAL) Lipid profile, reflex direct LDL (07/17/2024 7:19 AM EST) Cholesterol 205(H) <200 mg/dL 07/17/2024 11:53 AM EST [facility] Triglycerides 378(H) <150 mg/dL 07/17/2024 11:53 AM EST [facility] HDL 37.7(L) >=60.0 mg/dL 07/17/2024 11:53 AM EST [facility] LDL Calculated 92 0 - 100 mg/dL 07/17/2024 11:53 AM EST [facility] Cardiac Risk Factor 5.4(H) 0.0 - 5.0 07/17/2024 11:53 AM EST [facility] Blood Venipuncture / Unknown 07/17/2024 7:19 AM EST 07/17/2024 11:17 AM EST Narrative [facility] - 07/17/2024 11:53 AM EST Cardiac Risk Factor: Males Females 2x Average Risk 9.6 7.1 3x Average Risk 23.4 11.0 us Latisha Fallon NP LAB BLOOD ORDERABLES Final Resul t [facility] [address] [place] [address] * (ABNORMAL) Comprehensive metabolic panel (07/17/2024 7:19 AM EST) Sodium 141 136 - 145 mEq/L 07/17/2024 11:53 AM [facility] Potassium 4.0 3.5 - 5.1 mEq/L 07/17/2024 11:53 AM [facility] Chloride 107 98 - 109 mEq/L 07/17/2024 11:53 AM [facility] CO2 28 20 - 31 mEq/L 07/17/2024 11:53 AM [facility] Anion Gap 6 4 - 15 mEq/L 07/17/2024 11:53 AM [facility] Glucose 79 70 - 100 mg/dL 07/17/2024 11:53 AM [facility] Creatinine 0.85 0.60 - 1.10 mg/dL 07/17/2024 11:53 AM [facility] eGFR (Male) >60 60 - 115 mL/min 07/17/2024 11:53 AM [facility] BUN 10 9 - 23 mg/dL 07/17/2024 11:53 AM [facility] Calcium 9.3 8.3 - 10.6 mg/dL 07/17/2024 11:53 AM [facility] Total Protein 6.7 5.7 - 8.2 g/dL 07/17/2024 11:53 AM [facility] Albumin 4.4 3.2 - 4.8 g/dL 07/17/2024 11:53 AM [facility] A/G Ratio 1.9 1.0 - 2.3 07/17/2024 11:53 AM [facility] Total Bilirubin 0.2 0.2 - 1.0 mg/dL 07/17/2024 11:53 AM [facility] AST 57(H) 13 - 40 U/L 07/17/2024 11:53 AM EST [facility] Alkaline Phosphatase 94 46 - 116 IU/L 07/17/2024 11:53 AM EST [facility] ALT 86(H) 7 - 40 U/L 07/17/2024 11:53 AM EST [facility] Blood Venipuncture / Unknown 07/17/2024 7:19 AM EST 07/17/2024 11:17 AM EST Narrative [facility] - 07/17/2024 11:53 AM EST The calcium reference range has been changed as of 05/19/2024. us Latisha Fallon NP LAB BLOOD ORDERABLES Final Resul t [facility] [address] [place] [address] documented in this encounter Visit Diagnoses Diagnosis Bipolar disorder, current episode mixed, severe, without psychotic features (HCC) Other psychoactive substance abuse, uncomplicated (HCC) documented in this encounter Care Teams Surveyor Rod Helper Relationship Specialty Start Date End Date Surinder Camacho Jr., MD [address] [place] [address] PCP - General Internal Medicine 10/05/23 03/17/25 Kristian Schroeder MD [address] [place] [address] PCP - General Family Medicine 03/18/25 [place] [id number] 08/22/20 documented as of this encounter
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
--- OUTSIDE RECORDS SUMMARY | 2025-05-16 10:31 | XMS_ITS | Encounter Summary ---
Author Organization [facility] Address [address] [place] [address] Care Team Providers Care Clinical Staff Anesthesiologist Name Role Phone Pcp, No Unavailable Unavailable Doug Escoto MD, Surinder Doe Primary Care Provider [phone] Kristian Schroeder MD Primary Care Provider Encounter Details Date Type Department Care Team (Late st Contact Info) Description 10/05/2023 Procedure Pass [facility] - [address] [address] Social History Tobacco Use Types Packs/Day Years Used Date Smoking Tobacco: Former Cigarettes Smokeless Tobacco: Never Alcohol Use Standard Drinks/Week [...] on filedocumented in this encounter Care Teams Clinical Staff Anesthesiologist Relationship Specialty Start Date End Date Surinder Camacho Jr., MD [address] [place] [address] PCP - General Internal Medicine 10/05/23 03/17/25 Kristian Schroeder MD [address] [place] [address] PCP - General Family Medicine 03/18/25 [place] [id number] 08/22/20 documented as of this encounter
--- OUTSIDE RECORDS SUMMARY | 2025-05-16 10:31 | XMS_ITS | Encounter Summary ---
Author Organization [facility] Address [address] [place] [address] Care Team Providers Care Sane Rn Name Role Phone Pcp, No Unavailable Unavailable Doug Escoto MD, Surinder Doe Primary Care Provider [phone] Kristian Schroeder MD Primary Care Provider [phone] Encounter Details Date Type Department Care Team (Late st Contact Info) Description 07/31/2024 Pharmacy Visit [facility] [address] [place] [phone] Social History Tobacco Use Types Packs/Day [...] on filedocumented in this encounter Care Teams Sane Rn Relationship Specialty Start Date End Date Surinder Camacho Jr., MD [address] [place] [address] PCP - General Internal Medicine 10/05/23 03/17/25 Kristian Schroeder MD [address] [place] [address] PCP - General Family Medicine 03/18/25 [place] [id number] 08/22/20 documented as of this encounter
--- OUTSIDE RECORDS SUMMARY | 2025-05-16 10:32 | XMS_ITS | Encounter Summary ---
Author Organization [facility] [address] [place] [address] Care Team Providers Care Gambling Monitor Name Role Phone Pcp, No Unavailable Unavailable Kristian Schroeder MD Primary Care Provider [phone] Encounter Details Date Type Department Care Team (Late st Contact Info) Description 03/27/2025 Procedure Pass [facility] [address] [place] [address] Social History Tobacco Use Types Packs/Day [...] on filedocumented in this encounter Care Teams Gambling Monitor Relationship Specialty Start Date End Date Kristian Schroeder MD [address] [place] [phone] PCP - General Family Medicine 03/18/25 [place] [id number] 08/22/20 documented as of this encounter
--- OUTSIDE RECORDS SUMMARY | 2025-05-16 10:32 | XMS_ITS | Encounter Summary ---
Author Organization [facility] Address [address] [place] [address] Care Team Providers Care Auto Body Estimator Name Role Phone Pcp, No Unavailable Unavailable Kristian Schroeder MD Primary Care Provider [phone] Encounter Details Date Type Department Care Team (Late st Contact Info) Description 03/25/2025 Lab Requisition [facility] [address] [place] [address] Trudi Spencer, ASSEMBLY PERSON [address] [place] [id number] Bipolar disorder, current episode depressed, severe, without psychotic features (HCC); Opioid abuse, uncomplicated (HCC); Post-traumatic stress disorder, chronic Social History [...] Procedure Name Priority Date/Time Associated Diagnosis Comments CBC AND AUTO DIFFERENTIAL Routine 03/25/2025 7:30 AM EDT LITHIUM LEVEL Routine 03/25/2025 7:30 AM EDT COMPREHENSIVE METABOLIC PANEL Routine 03/25/2025 7:30 AM EDT Bipolar disorder, current episode depressed, severe, without psychotic features (HCC) Opioid abuse, uncomplicated (HCC) Post-traumatic stress disorder, chronic documented in this encounter Results * [place] level (03/25/2025 7:30 AM EDT) Pathologist [facility] [place] 1.09 0.50 - 1.30 mmol/L 03/25/2025 9:22 AM EDT [facility] Blood Venipuncture / Unknown 03/25/2025 7:30 AM EDT 03/25/2025 8:34 AM EDT us Trudi Spencer ASSEMBLY PERSON LAB BLOOD ORDERABLES Final Re sult [facility] [address] [place] [id number] * (ABNORMAL) CBC and Auto Differential (03/25/2025 7:30 AM EDT) Pathologist [facility] WBC 10.7 4.8 - 11.2 10*3/ L 03/25/2025 8:52 AM EDT [facility] RBC 4.44 4.00 - 5.90 10*6/ L 03/25/2025 8:52 AM EDT [facility] HGB 13.0(L) 14.0 - 17.2 g/dL 03/25/2025 8:52 AM EDT [facility] HCT 39.2(L) 40.0 - 52.0 % 03/25/2025 8:52 AM EDT [facility] MCV 88.3 82.0 - 98.0 fL 03/25/2025 8:52 AM EDT [facility] MCH 29.3 27.0 - 35.0 pg 03/25/2025 8:52 AM EDT [facility] MCHC 33.2 32.0 - 37.0 g/dL 03/25/2025 8:52 AM EDT [facility] RDW 13.0 12.0 - 15.0 % 03/25/2025 8:52 AM EDT [facility] PLT 209 150 - 400 10*3/ L 03/25/2025 8:52 AM EDT [facility] MPV 11.4 7.0 - 14.0 fL 03/25/2025 8:52 AM EDT [facility] Neut % 80.1 45.0 - 85.0 % 03/25/2025 8:52 AM EDT [facility] Immature Granulocytes % 0.5 0 - 5.0 % 03/25/2025 8:52 AM EDT [facility] Lymph % 12.4(L) 15.0 - 45.0 % 03/25/2025 8:52 AM EDT [facility] Mcmullen % 5.0 0.0 - 12.0 % 03/25/2025 8:52 AM EDT [facility] Eos % 1.8 0.0 - 7.0 % 03/25/2025 8:52 AM EDT [facility] Baso % 0.2 0.0 - 3.0 % 03/25/2025 8:52 AM EDT [facility] NRBC% 0 0 /100 WBC /100 WBC 03/25/2025 8:52 AM EDT [facility] Neut # 8.6 2.2 - 9.5 10*3/ L 03/25/2025 8:52 AM EDT [facility] Immature Granulocytes Absolute 0.05 0.00 - 0.56 10*3/ L 03/25/2025 8:52 AM EDT [facility] Lym # 1.3 0.7 - 5.0 10*3/ L 03/25/2025 8:52 AM EDT [facility] Mcmullen # 0.5 0.0 - 1.3 10*3/ L 03/25/2025 8:52 AM EDT [facility] Eos # 0.2 0.0 - 0.4 10*3/ L 03/25/2025 8:52 AM EDT [facility] Baso # 0.0 0.0 - 0.3 10*3/ L 03/25/2025 8:52 AM EDT [facility] Blood Venipuncture / Unknown 03/25/2025 7:30 AM EDT 03/25/2025 8:34 AM EDT us Trudi Spencer ASSEMBLY PERSON LAB BLOOD ORDERABLES Final Re sult [facility] [address] [place] [address] * (ABNORMAL) Comprehensive metabolic panel (03/25/2025 7:30 AM EDT) Sodium 145 136 - 145 mEq/L 03/25/2025 9:23 AM EDT [facility] Potassium 5.0 3.5 - 5.1 mEq/L 03/25/2025 9:23 AM EDT [facility] Chloride 106 98 - 109 mEq/L 03/25/2025 9:23 AM EDT [facility] CO2 31 20 - 31 mEq/L 03/25/2025 9:23 AM EDT [facility] Anion Gap 8 4 - 15 mEq/L 03/25/2025 9:23 AM EDT [facility] Glucose 87 70 - 100 mg/dL 03/25/2025 9:23 AM EDT [facility] Creatinine 0.94 0.60 - 1.10 mg/dL 03/25/2025 9:23 AM EDT [facility] eGFR (Male) >60 60 - 115 mL/min 03/25/2025 9:23 AM EDT [facility] BUN 7(L) 9 - 23 mg/dL 03/25/2025 9:23 AM EDT [facility] Calcium 9.4 8.3 - 10.6 mg/dL 03/25/2025 9:23 AM EDT [facility] Total Protein 6.6 5.7 - 8.2 g/dL 03/25/2025 9:23 AM EDT [facility] Albumin 4.0 3.2 - 4.8 g/dL 03/25/2025 9:23 AM EDT [facility] A/G Ratio 1.5 1.0 - 2.3 03/25/2025 9:23 AM EDT [facility] Total Bilirubin 0.3 0.2 - 1.0 mg/dL 03/25/2025 9:23 AM EDT [facility] AST 36 13 - 40 U/L 03/25/2025 9:23 AM EDT [facility] Alkaline Phosphatase 81 46 - 116 IU/L 03/25/2025 9:23 AM EDT [facility] ALT 59(H) 7 - 40 U/L 03/25/2025 9:23 AM EDT [facility] Blood Venipuncture / Unknown 03/25/2025 7:30 AM EDT 03/25/2025 8:34 AM EDT Narrative [facility] - 03/25/2025 9:23 AM EDT Calculation based on the Chronic Kidney Disease Epidemiology Collaboration (CKD- EPI) equation refit without adjustment for race. us Trudi Spencer NP LAB BLOOD ORDERABLES Final Re sult [facility] [address] [place] [address] documented in this encounter Visit Diagnoses Diagnosis Bipolar disorder, current episode depressed, severe, without psychotic features (HCC) Opioid abuse, uncomplicated (HCC) Post-traumatic stress disorder, chronic documented in this encounter Care Teams Auto Body Estimator Relationship Specialty Start Date End Date Kristian Schroeder MD [address] [place] [address] PCP - General Family Medicine 03/18/25 [place] [id number] 08/22/20 documented as of this encounter
--- NOTE | 2025-05-16 10:34 | HE.PHANOTE ---
Re Methadone Pt receives 105mg from [facility] [place] Last dose was given 05/14/25 @0900
[2025-05-16] MEDS: methADONE HCl 20 MG/2 ML ORAL.CONC 105 MG PO (10:45)
--- NOTE | 2025-05-16 10:50 | ED_ITS ---
HPI - General Adult General Chief complaint: General Medical Stated complaint: missed methadone dose Time Seen by Provider: 05/16/25 10:26 Source: patient, RN notes reviewed and old records reviewed Mode of arrival: ambulatory History of Present Illness ED Provider: Janae Guzman PA-C HPI narrative: 34-year-old male with a past medical history substance abuse currently on methadone presenting to ED for methadone dosing. States last took methadone on 05/[address] [facility], takes 105 mg. Denies SI/ HI or illicit drug use. Related Data Home Medications ?Medication ?Instructions ?Recorded ?Confirmed methadone 10 mg/mL oral 105 mg PO DAILY 05/16/25 concentrate (Methadone Intensol) Allergies Allergy/AdvReac Type Severity Reaction Status Date / Time Unable to Assess Allergy Verified 05/16/25 09:23 Review of Systems Review of Systems: Yes all other systems are reviewed and are negative Constitutional: Constitutional: Reports as per [facility] Past Medical History Attestation statement: The following information was validated with the patient. Source: old records reviewed Social History Social History Alcohol intake: never Advance Directives: No Advance Directives Information Provided: Yes Physical Exam ED Vital Signs: Vital Signs - 24 hr 05/16/25 09:23 Temperature 98.3 F Pulse Rate 86 Respiratory Rate 16 Blood Pressure 117/68 Pulse Oximetry 95 Oxygen Delivery Method Room Air BMI result Body Mass Index 37.2 Const General: cooperative, healthy appearing and no acute distress Orientation/consciousness: patient oriented x3 Limitations: no limitations HENMT Head: Yes normal to inspection and Yes atraumatic Ears: hearing grossly normal bilaterally General nose exam: Normal external nose present Face and sinus: Yes normal facial exam Eyes General: appearance normal, both eyes and all related structures EOM: EOMs intact bilaterally Neck Neck: Yes normal visual inspection and Yes no meningeal signs Resp Effort & Inspection: normal respiratory effort and no respiratory distress Cardio Rate: regular rate Skin Rashes: no rashes Wounds: no wounds Neuro General: patient oriented x3, tone normal and no meningeal signs Cranial nerves: Yes CN's II-XII intact bilaterally Gait exam (Neuro): Normal gait present Extrem General: Yes normal to inspection Medications Administered Discontinued Medications Generic Name Dose Route Start Last Admin Trade Name Freq PRN Reason Stop Dose Admin Methadone HCl 105 mg 05/16/25 10:37 05/16/25 10:45 Methadone Hcl 20 Mg/2 Ml Oral.Conc PO 05/16/25 10:38 105 mg ONCE ONE Administration Medical Decision Making Medical Decision Making MDM Narrative: 34-year-old male with a past medical history substance abuse currently on methadone presenting to ED for methadone dosing. On exam vital signs stable, NAD, nontoxic appearing, methadone dose verified, cleared with hot top liner helper patient to receive full-dose of 105 mg today and will be supplied with last dose letter Please refer to course for remaining clinical decision making, interpretation of labs/imaging results, and discussions with consultants and/or family members. Results discussed with patient including worrisome signs and symptoms and strict return precautions, and when to return to the emergency department. They verbalized understanding and feel safe for discharge at this time. Differential Diagnosis Differential Diagnoses: The differential diagnosis associated with the presentation includes As above Consult Healthcare Provider Management of the patient was discussed with: Cvt Rn ( recovery nurse) External Record Review External record reviewed: Inpatient record, Office record, Outpatient record, Prior outpatient labs, Prior outpatient radiology, Primary care record and Outside ED record Tests considered The following testing was considered but not selected: As above Chronic Conditions Patient?s care impacted by: Other Social Determinants Patient?s care significantly limited by Social Determinants of Health including: Inadequate housing, Low income, Alcoholism and drug addiction in family and Problems related to primary support group Discharge Plan Discharge Clinical Impression: Methadone use Patient Disposition: Home, Self-Care Instructions: Methadone (By mouth) Additional Instructions: bring your last dose letter to the methadone clinic tomorrow Opiate use disorder You were seen in our Emergency Department today for treatment of opiate use disorder. You may have been dosed with medication for opiate use disorder (MOUD) in the form of suboxone or methadone. You may experience feeling some withdrawal symptoms and this is normal. The? dose in the Emergency Department is a starting dose and meant to be titrated up once you follow up with a clinic. Please do not feel discouraged, it is a process. The nurse has reviewed with you where to follow up and what information to bring with you, to continue treatment. You also may have been given naloxone (narcan) to take home with you. This medication is used to potentially treat opiate overdose. If you decide you want to stop or cut down on how much you?re using, you can call or walk into our outpatient Addiction Treatment office: [facility] (M-F 9am-5p) [address], [address] [phone] You may have been provided with safer injection?items, please take time to take care of YOU and your health. Use new supplies whenever possible to lessen the chances of infections and other illnesses.? ?If you need more supplies, please go [facility],? [address] [place] [address] OR you can call or text to coordinate delivery of safer supplies. You were also provided a list of several treatment providers in the area.? If you experience any worsening symptoms you cannot control please return to the ED or call 911. Please follow up at your next appointment. Things to look out for are fevers, chest pain, shortness of breath, severe pain, dizziness, fainting or any other concerns. Prescriptions: No Action methadone [Methadone Intensol] 10 mg/mL Concentrate 105 mg PO DAILY Referrals: [facility] [Provider Group] Print Language: Italian
== END 2025-05-16 10:53 | disposition home or self-care (01) ==
PROVIDERS: Emergency Provider Emergency Medicine Emergency Medical Services
DX: F11.90 Opioid use, unspecified, uncomplicated (principal)
CPT/HCPCS: 99281; 99283